=== PATIENT | male | born 1985 | race Caucasian/White ===

== ENCOUNTER 2016-08-30 17:51 | Emergency (ER) | payer OTHER ==
[~2016-08-30] VITALS: Ht 175.3 cm; Wt 69.2 kg
[2016-08-30 18:02] VITALS: BP 126/83; PULSE 63; TEMP 36.7; O2SAT 98; Ht 175.3 cm; Wt 69.2 kg
[2016-08-30] MEDS ORDERED: IBUP-1050 PO (18:13)
--- NOTE | 2016-08-30 19:06 | DIAGNOSTIC IMAGING REPORT ---
RIGHT SHOULDER MIN 2 VIEWS ROUTINE CLINICAL HISTORY: Right neck pain into right shoulder Right pain COMPARISON: None. DISCUSSION: The bones and joint spaces appear intact. There is no evidence of fracture, dislocation or bony disease. There is no evidence for soft tissue swelling. IMPRESSION: Negative study. Electronically signed by: Rangel Ornelas M.D. 08/30/2016 7:05 PM Dictated Date/Time: 08/30/2016 7:04 PM
--- NOTE | 2016-08-30 19:07 | DIAGNOSTIC IMAGING REPORT ---
CERVICAL SPINE 6 VIEWS HISTORY: Pain. Radiculopathy. Right neck pain into right shoulder COMPARISON: None. FINDINGS: The cervical spine is visualized from C1 through the superior endplate of T1. There is no fracture. No subluxation. Disc spaces are preserved. Prevertebral soft tissues and the atlantodens interval are intact. IMPRESSION: No fracture or subluxation within the cervical spine. Electronically signed by: Rangel Ornelas M.D. 08/30/2016 7:06 PM Dictated Date/Time: 08/30/2016 7:05 PM
[2016-08-30] MEDS ORDERED: CYCL10TA6 PO (20:07)
[2016-08-30] MEDS ORDERED: PRED50TA PO (20:07)
[2016-08-30] MEDS ORDERED: NORCO 5/325MG HOME PACK PO ONE (20:15)
--- NOTE | 2016-08-30 22:12 | EMERGENCY ROOM VISIT NOTE ---
History First contact with patient: 18:25 Chief Complaint: ARM PAIN Stated Complaint: R ARM PAIN History of Present Illness The patient is a 31 year old male who presents to the Emergency Room with complaints of right shoulder pain for the past week. The patient does not recall a distinct injury or trauma to cause his symptoms, but he is employed as a construction and maintenance inspector, and his job is physical in nature. The patient states that he will have pain that radiates from his right shoulder down into his fourth and fifth fingers. He has not had rash, fever, chills, or distinct injury. He has not had similar symptoms like this in the past. His symptoms are intermittent in nature. He has not been taking anything [id number]-[id number] for his discomfort, which she currently rates a 5/10. Review of Systems More than 10 systems were reviewed and otherwise negative with the exception of history of present illness. Past Medical/Surgical History No chronic medical disease Social History Smoking Status: Former Smoker Current/Historical Medications Scheduled Cyclobenzaprine Hcl (Flexeril), 10 MG PO TID Prednisone (Prednisone), 50 MG PO DAILY Scheduled PRN Ibuprofen (Advil), 200-600 MG PO Q4H PRN for Pain Allergies Coded Allergies: No Known Allergies (Unverified , 08/30/16) Physical Exam Vital Signs Date Time Temp Pulse Resp B/P Pulse Ox O2 Delivery O2 Flow Rate FiO2 08/30/16 18:02 36.7 63 18 126/83 98 Room Air Pain Rating (0-10): 4.0 Physical Exam VITALS: Vitals are noted on the nurse's note and reviewed by myself. Vital signs stable. GENERAL: Well-developed, well-nourished, white male, who is in no acute distress and resting comfortably. Patient is cooperative with the examination. HEAD: Normocephalic atraumatic. NECK: Supple without nuchal rigidity. No lymphadenopathy. No thyromegaly. Cervical spine is nontender. HEART: Regular rate and rhythm without murmurs gallops or rubs. LUNGS: Clear to auscultation bilaterally without wheezes, rales or rhonchi. No retractions or accessory muscle use. MUSCULOSKELETAL: No muscle atrophy, erythema, or edema noted. There is mild tenderness along the medial aspect of the right scapula. No deformity noted. The patient is with full range of motion of the right upper extremity. No rash or lesions. Medical Social Consultant strength is 5/5. Negative Tinel's and Phalen's. NEURO: Patient was alert and oriented to person place and time. CN II through XII grossly intact. Deep tendon reflexes 2+ throughout. Medical Decision & Procedures ER Provider Diagnostic Interpretation: CERVICAL SPINE 6 VIEWS HISTORY: Pain. Radiculopathy. Right neck pain into right shoulder COMPARISON: None. FINDINGS: The cervical spine is visualized from C1 through the superior endplate of T1. There is no fracture. No subluxation. Disc spaces are preserved. Prevertebral soft tissues and the atlantodens interval are intact. IMPRESSION: No fracture or subluxation within the cervical spine. RIGHT SHOULDER MIN 2 VIEWS ROUTINE CLINICAL HISTORY: Right neck pain into right shoulder Right pain COMPARISON: None. DISCUSSION: The bones and joint spaces appear intact. There is no evidence of fracture, dislocation or bony disease. There is no evidence for soft tissue swelling. IMPRESSION: Negative study. Medications Administered Medications (Trade) Dose Ordered Sig/Farzana Route Start Time Stop Time Status Last Admin Dose Admin Prednisone (PredniSONE TAB) 40 mg NOW STAT PO 08/30/16 18:31 08/30/16 18:33 DC 08/30/16 19:12 40 MG Acetaminophen/ Hydrocodone Bitart ([place] 5/325mg Home Pack) 1 homepack UD ONCE PO 08/30/16 20:15 08/30/16 20:16 DC 08/30/16 20:21 1 HOMEPACK ED Course Physical exam and history were performed. Nursing notes and EMR were reviewed. Patient appears to have right shoulder pain with some radicular radiation to his right hand. The patient does not appear toxic on examination. He is with full strength and range of motion. I did treat him here in the emergency department with some prednisone, and performed x-rays. The x-rays of the neck and shoulder are without significant acute findings. Overall the patient appears to be a good candidate for conservative treatment. He will be given a home pack of Vicodin as well as a course of prednisone and Flexeril. The patient should follow with orthopedics for further care and management. He likely needs an EMG if his symptoms persist. I discussed this with the patient , who voiced understanding. He was otherwise invited back to the ER with any new, worsening, or concerning symptoms. The chart was completed utilizing [employer] Voice Recognition Software. Grammatical errors, random word insertions, pronoun errors, and incomplete sentences are an occasional consequence of this system due to software limitations, ambient noise, and hardware issues. Any formal questions or concerns about the content, text, or information contained within the body of this dictation should be directly addressed to the provider for clarification. . Medical Decision Differential diagnosis includes, but is not limited to: Sprain, strain, fracture , dislocation, subluxation, contusion, impingement, and others Impression Primary Impression: Right shoulder pain Departure Information Dispostion Home / Self-Care Condition GOOD Prescriptions Cyclobenzaprine Hcl (FLEXERIL) 10 Mg Tab 10 MG PO TID for 7 Days, #21 TAB Prov: Saleem Alexandra PA-C 08/30/16 Prednisone (Prednisone) 50 Mg Tab 50 MG PO DAILY for 4 Days, #4 TAB Prov: Saleem Alexandra PA-C 08/30/16 Referrals Daniel Cuenca D.OJaneth Forms HOME CARE DOCUMENTATION FORM, IMPORTANT VISIT INFORMATION Patient Instructions My [facility] Additional Instructions You were seen and evaluated today on an emergency basis only. This is not a substitute for, or an effort to provide, complete comprehensive medical care. It is not possible to recognize and treat all injuries or illnesses in a single emergency department visit. For this reason it is recommended that you followup with [facility], Dr. Cuenca's office, if symptoms continue over the next week. For baseline pain relief you may alternate ibuprofen and acetaminophen every 4 hours for pain control. Take 600 mg ibuprofen (Advil) and then 4 hours later take 1000 mg acetaminophen (Tylenol). Do not take more than 3000 mg acetaminophen in a single day. [place] (hydrocodone/acetaminophen) 5/325 mg (homepack) every 6 hours as needed for worsening breakthrough pain. Do not drink or drive on [place]. This medication will likely make you tired. Do not take [place] and Tylenol at the same time as both contain acetaminophen. [place] may cause constipation. You may wish to take an [id number] stool softener like Colace if this occurs. Take prednisone once daily as prescribed. It is recommended you take this in the morning with food. Flexeril 1 tablet up to 3 times a day as needed for muscle spasms. No driving, working, or alcohol use with Flexeril. You are welcome to return to the emergency department anytime with new, worsening, or concerning symptoms.
== END 2016-08-30 20:44 | disposition home or self-care (01) ==
LOC: C.EDB 17:52 → C.EDD 20:44
DX: M25.511 Pain in right shoulder (principal); Z87.891 Personal history of nicotine dependence